=== PATIENT | male | born 1945 | race Caucasian/White ===

== ENCOUNTER 2024-06-05 07:59 | Outpatient (REF) | payer MEDICARE, SELFPAY ==
--- NOTE | ~2024-06-05 | CT_ITS ---
EXAMINATION: CT angio head neck CLINICAL INFORMATION: CEREBRAL MICROVASCULAR DISEASE COMPARISON: None TECHNIQUE: A noncontrast axial CT scan of the head was obtained. Test bolus sequences followed by intravenous administration of 70 mL of Omnipaque 350. Helical imaging was performed in the axial plane from the mediastinum to the skull vertex. Delayed postcontrast imaging of the head was also performed. The data was processed at the sterile processing technologist's workstation for generation of MIP sequences. Three-dimensional volume rendered reformatted images were also generated at an offline 3-D workstation. Arterial stenoses are measured in accordance with NASCET criteria or similar method if applicable. This CT examination was performed using dose optimization techniques as appropriate, variously including the following: * Automated exposure control * Adjustment of mA and/or kV according to patient size (this includes techniques or standardized protocols for targeted exams where dose is matched to indication/reason for exam; i.e. extremities or head) Use of iterative reconstruction technique DLP: 2533 mGy-cm. FINDINGS: CT head: There is a nonenhancing hypodensity in the inferior right cerebellum. Parekh to white matter differentiation is otherwise maintained. There is no evidence of acute intracranial hemorrhage. No abnormal mass effect or midline shift is seen. No extra-axial fluid collections are identified. There is no abnormal enhancement. No hydrocephalus. Proportional prominence of the ventricles and sulcal spaces is consistent with mild volume loss. Patchy periventricular and deep white matter hypoattenuation is consistent with moderate small vessel ischemic changes. The cerebellar tonsils are well positioned. No acute osseous or soft tissue abnormality. The mastoid air cells and visualized portions of the paranasal sinuses are well aerated. CTA neck: The imaged aortic arch is normal. Atheromatous plaque at the origin the right common carotid artery results in mild stenosis. Otherwise, the origins of the great vessels are widely patent. The common carotid arteries are patent. Bulky calcifications of the bilateral carotid bifurcations result in nonsignificant stenosis. There is a short dissection flap versus pseudoaneurysm projecting posteriorly from the origin the right internal carotid artery measuring 0.5 x 0.3 cm (series #10 axial image 364). The cervical internal carotid arteries are patent. The vertebral arteries opacify normally and are of normal caliber. Nonvascular: There is a 1.4 x 0.9 cm well-circumscribed right thyroid hypodense nodule. The soft tissues of the neck are otherwise unremarkable. Emphysema in the right greater than left visualized lung apices. Moderate C4-C6 cervical spondylosis. CTA head: Cavernous ICAs: Scattered atherosclerotic calcifications without significant stenosis on either side. A1 segments, anterior communicating artery, and A2 segments: Patent without significant stenosis. M1 segments and major MCA branches: Bilateral M1 segments are patent without significant stenosis. P1, P2 and proximal P3 segments of the user experience designer: Patent without significant stenosis. -type left NON LINEAR EDITOR. Intracranial vertebral arteries, cerebellar arteries and basilar artery: Patent without significant stenosis. Specifically, the visualized right PICA is widely patent. CT/CT angio head neck IMPRESSION: HEAD CT: 1. There is a nonenhancing hypodensity in the inferior right cerebellum, concerning for infarct of indeterminate age. If clinically warranted, consider brain MRI for further assessment. 2. No acute intracranial hemorrhage. CTA HEAD/NECK: 1. No high-grade stenosis or proximal occlusion of the vasculature of the head and neck. Specifically, the right PICA is widely patent. 2. There is a short dissection flap versus pseudoaneurysm projecting posteriorly from the origin of the right internal carotid artery. 3. There is a 1.4 cm right thyroid hypodense nodule. If clinically warranted, consider dedicated thyroid ultrasound for assessment. Electronically signed by: Isabel Gu DO 06/05/2024 01:36 PM EDT
[2024-06-05] MEDS: iohexoL 350 MG/ML 100 ML INFUS..BTL IV (09:26)
[2024-06-05 16:45] LABS: GFR POC > 60
== END 2024-06-05 08:00 | disposition home or self-care (01) ==
LOC: HO.CT 07:59
PROVIDERS: PCP Internal Medicine Endocrinology, Diabetes & Metabolism; Visit Provider Psychiatry & Neurology Neurology
DX: I63.50 Cerebral infarction due to unspecified occlusion or stenosis of unspecified cerebral artery (principal)
CPT/HCPCS: 70496; 70498; 82565; Q9967

== ENCOUNTER 2024-07-26 09:33 | Outpatient (REF) | payer MEDICARE, SELFPAY ==
--- NOTE | ~2024-07-26 | MR_ITS ---
EXAMINATION: MR BRAIN WITHOUT CONTRAST CLINICAL INFORMATION: Multiple cerebral infarctions. COMPARISON: CTA head and neck from 06/05/2024. TECHNIQUE: MRI of the brain was obtained using routine sequences without contrast. FINDINGS: No focal restricted diffusion is demonstrated to suggest acute or subacute cerebral ischemia. No evidence of acute hemorrhagic products on heme-sensitive imaging. Chronic region of encephalomalacia in the right cerebellar hemisphere with hemosiderin staining. Scattered and partially confluent periventricular, deep white matter, and brainstem T2 FLAIR hyperintensities consistent with moderate underlying microangiopathy. Proportional prominence of the ventricles and sulcal spaces without evidence of obstructive hydrocephalus. No abnormal mass effect. No midline shift. There appears to be a 1.6 cm lesion along the right aspect of the pituitary gland with smooth remodeling of the sella turcica. Normal positioning of the cerebellar tonsils. Normal arterial and venous vascular flow voids are present. Normal, homogeneous marrow signal. Mild mucosal thickening of the paranasal sinuses. Trace left-sided mastoid effusion. No signal abnormalities within the right mastoid. MR/MR head/brain wo con IMPRESSION: 1. No acute intracranial abnormalities. 2. Chronic region of encephalomalacia in the right cerebellar hemisphere. Moderate underlying microangiopathy and generalized cerebral volume loss. 3. There appears to be a 1.6 cm lesion along the right aspect of the pituitary gland with smooth remodeling of the sella turcica. This may represent an underlying pituitary adenoma. If clinically indicated, this could be further evaluated with dedicated pituitary protocol MRI. Electronically signed by: Prasanth Suarez DO 08/12/2024 01:42 PM [facility] [place]
== END 2024-07-26 09:34 | disposition home or self-care (01) ==
LOC: HO.MRI 09:33
PROVIDERS: PCP Internal Medicine Endocrinology, Diabetes & Metabolism; Visit Provider Psychiatry & Neurology Neurology
DX: I63.50 Cerebral infarction due to unspecified occlusion or stenosis of unspecified cerebral artery (principal)
CPT/HCPCS: 70551

== ENCOUNTER 2025-03-10 08:47 | Outpatient (REF) | payer MEDICARE, SELFPAY | END 2025-03-10 08:48 | disposition home or self-care (01) | LOC: HO.LAB 08:47 | PROVIDERS: PCP Internal Medicine Endocrinology, Diabetes & Metabolism; Visit Provider Psychiatry & Neurology Neurology | DX: I10 Essential (primary) hypertension (principal); I25.10 Atherosclerotic heart disease of native coronary artery without angina pectoris; I63.9 Cerebral infarction, unspecified; E23.7 Disorder of pituitary gland, unspecified; R26.9 Unspecified abnormalities of gait and mobility; Z79.82 Long term (current) use of aspirin; Z79.02 Long term (current) use of antithrombotics/antiplatelets; Z79.818 Long term (current) use of other agents affecting estrogen receptors and estrogen levels; Z79.899 Other long term (current) drug therapy; Z95.1 Presence of aortocoronary bypass graft; Z95.4 Presence of other heart-valve replacement | CPT/HCPCS: 36415; 84146; 99212 ==

== ENCOUNTER 2025-03-10 08:47 | Outpatient (AMB) | payer MEDICARE, SELFPAY ==
--- OUTSIDE RECORDS SUMMARY | 2025-03-10 09:00 | XMS_ITS | Clinical Summary ---
Author Organization [facility] Address [address] [place], [place] [address] Phone Care Team Providers Care Industrial Economics Professor Name Role Phone Akanksha Block Primary Care Provider [phone] Allergies Active Allergy Reactions Criticality Noted Date Comments Iodinated Contrast Media 07/14/2024 Medications amLODIPine (NORVASC) 5 mg tablet Take 1 Tablet by mouth daily. Active aspirin 81 mg EC tablet Take 1 Tablet by mouth daily. Active clopidogreL (PLAVIX) 75 mg tablet Take 1 Tablet by mouth daily. Active finasteride (PROSCAR) 5 mg tablet Take 1 Tablet by mouth daily. Active lisinopril (PRINIVIL,ZESTRIL) 40 mg tablet Take 1 tablet (40 mg total) by mouth 1 (one) time each day. Active VITAMIN A ORAL Take 1 tablet by mouth 1 (one) time each day. Active atorvastatin (LIPITOR) 80 mg tabletIndications:a therosclerotic cardiovascular disease Take 1 tablet (80 mg total) by mouth 1 (one) time each day. 90 tablet 3 4 Active metoprolol succinate (TOPROL-XL) 50 mg 24 hr tabletIndications:C oronary artery disease involving morongo coronary artery of morongo heart without angina pectoris Take 1 tablet (50 mg total) by mouth 1 (one) time each day. Do not crush or chew. 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 Continue with DAPT (ASA and Plavix). Plavix may be discontinued in December 2024. Continue with Metoprolol, Amlodipine and Lisinopril. Orders: atorvastatin (LIPITOR) 80 mg tablet; Take 1 tablet (80 mg total) by mouth 1 (one) time each day. metoprolol succinate (TOPROL-XL) 50 mg 24 hr tablet; Take 1 tablet (50 mg total) by mouth 1 (one) time each day. Do not crush or chew. History of cardiac cath 06/20/2024 Overview (06/20/2024): Done on 12/11/[address]Christopher Roberto Akhtar indications: severe aortic stenosis Cerebrovascular accident (CVA) ([facility] V24, [facility] V28) 03/09/2024 Overview (07/14/2024): December 2023 -developed left-sided numbness with brain MRI showing acute/subacute scattered CVA suspected to be cardioembolic. 14 day ROCT monitor March 2024 showed normal sinus rhythm without evidence of any other significant arrhythmias Assessment & Plan (07/14/2024 2:56 PM EST): Suspected cardioemoblic CVA in December 2023 manifested as left sided numbness. No neurologic symptoms since that time. ROCT did not show any atrial arrhythmias. Continue with Aspirin, Atorvastatin, Metoprolol, Amlodipine and Lisinopril as well as Plavix for now. Aortic valve stenosis 01/18/2023 Bicuspid aortic valve 01/18/2023 Overview (07/14/2024): December 2023 -surgical 21mm bioprosthetic aortic valve replacement in [place] at time of bypass surgery Assessment & Plan (07/14/2024 2:56 PM EST): Well seated and normally functioning 21mm bioprosthetic aortic valve on June 2024 echocardiogram. Valve working well on exam. Compensated on exam. Repeat echocardiogram in 2-3 years. GERD (gastroesophageal reflux disease) Peripheral arterial occlusive disease (CMS/HCC V 24) 01/18/2023 Encounters Date Type Department Care Team Description 01/14/2025 Telephone [facility] Cardiology [facility] [address] [place] [address] Faraz Montgomery NP Medication from Last 3 Months Surgical History Surgery Date Site/Laterality Comments AORTIC VALVE REPLACEMENT CORONARY ARTERY BYPASS GRAFT CARDIAC CATHETERIZATION Done on 12/11/[address]Christopher Holland Akhtar indications:severe aortic stenosis Medical History Medical History Date Comments GERD (gastroesophageal reflux disease) Social History Tobacco Use Types Packs/Day Years Used Date Smoking Tobacco: Former Cigarettes Smokeless Tobacco: Never Tobacco Cessation:Counseling Given: Not Answered Alcohol Use Standard Drinks/Week Comments Yes 0 (1 standard drink = 0.6 oz pur e alcohol) OCC Sex and Gender Information Value Date Recorded Sex Assigned at Not on file Legal Sex Male 7:34 AM EST Gender Identity Not on file Sexual Orientation Not on file Obstetrics History Last Filed Vital Signs Vital Sign Reading Time Taken Comments Blood Pressure 144/52 07/14/2024 11:10 AM EST Pulse 59 07/14/2024 11:10 AM EST Temperature - - Respiratory Rate - - Oxygen Saturation 99% 07/14/2024 11:10 AM EST Inhaled Oxygen Concentration - - Weight 60.1 kg (132 lb 8 oz) 07/14/2024 11:10 AM EST Height 172.7 cm (5' 8 ) 07/14/2024 11:10 AM EST Body Mass Index 20.15 07/14/2024 11:10 AM EST Plan of Treatment Upcoming Encounters Date Type Department Care Team (Late st Contact Info) Description 07/20/2025 9:10 AM EST Office Visit [facility] [address] [place] [address] Faraz Montgomery NP [address] [place] [address] [place] [address] Health Maintenance Due Date Last Done Comments DTaP,Tdap,and Td Vaccines (1 - Tdap) 1964 Pneumococcal Vaccine: 50+ Years (1 of 1 - PCV) 1995 Zoster Vaccines (1 of 2) 1995 RSV Immunization Adult Patients (1 - 1-dose 75+ series) 2020 Cholesterol Screening (Lipid Panel) 08/05/2022 Depression Screening 08/05/2022 Falls Risk Assessment 08/05/2022 Hepatitis C Screening 08/05/2022 Medicare Annual Wellness Visit 08/05/2022 Social Influencers of Health Screening 08/05/2022 COVID-19 Vaccine (3 - 2023-2 5 season) 2024 02/22/2021, 02/01/2021 Hypertension/CHF/CAD Annual BMP Blood Test 07/14/2024 Influenza Vaccine (#1) 2025 HIB Vaccines Aged Out No longer eligi ble based on patient's age to complete this topic HPV Vaccines Aged Out No longer eligi ble based on patient's age to complete this topic Hepatitis A Vaccines Aged Out No long er eligible based on patient's age to complete this topic Hepatitis B Vaccines Aged Out No long er eligible based on patient's age to complete this topic IPV Vaccines Aged Out No longer eligi ble based on patient's age to complete this topic MMR Vaccines Aged Out No longer eligi ble based on patient's age to complete this topic Meningococcal ACWY Vaccine Aged Out N o longer eligible based on patient's age to complete this topic Meningococcal B Vaccine Aged Out No l onger eligible based on patient's age to complete this topic RSV Immunization Patients Under 20 months Aged Out No longer eligible b ased on patient's age to complete this topic Varicella Vaccines Aged Out No longer eligible based on patient's age to complete this topic Insurance MEDICARE Care Teams Industrial Economics Professor Relationship Specialty Start Date End Date Akanksha Block PA [address] [place] [address] [place] [address] PCP - General 03/09/24
--- OUTSIDE RECORDS SUMMARY | 2025-03-10 09:00 | XMS_ITS | Continuity of Care Document ---
Author Organization [facility] [address] [place] [address] Phone [phone] Care Team Providers Care Magazine Designer Name Role Phone [facility] Cardiology Care Team Information Assistant Professor Of Religion [phone] Akanksha Block Care Team Information Receive r [phone] Problems Active Problems Provider Date Gastroesophageal reflux disease Marcos Moreno M.D. Onset: 03/16/2022 Aortic valve stenosis Marcos Moreno M.D. Onse t: 03/16/2022 Bicuspid aortic valve Marcos Moreno M.D. Onse t: 03/16/2022 Atherosclerosis of arteries of the extremities Marcos Moreno M.D. Onset: 03/16/2022 Essential hypertension Marcos Moreno M.D. Ons et: 06/18/2022 Peripheral arterial occlusive disease Marcos mchugh M.D. Onset: 06/18/2022 Cerebral artery occlusion ZAIN Brownlee Ons et: 04/06/2024 Ischemic heart disease ZAIN Brownlee Onset: 03/04/2024 Social History Type Date Description Comments Sex Male Sex Unknown Lives With Alone ETOH Use Occasionally consumes alcoho l Allergies and adverse reactions Description No Known Drug Allergies Medications Active Medications SIG Qnty Indications Ordering Provider Date Metoprolol Yqxkqglm50ms Tablets Take One Tablet By Mouth Twice A Day 90tabs Cathy Elliott M.D. 11/02/2024 Clobetasol Propionate E0.05% Cream Apply to affected skin once a day as directed 30gm Cathy Elliott M.D. 10/15/2024 [id number] Tablets 1 tab by mouth every day as directed Marcos Moreno M.D. 02/19/2024 Amlodipine Xamrezac8oj Tablets 1 by mouth every day 90kylie Elliott M.D. 07/19/2023 Qtwyrcrmjb88wz Tablets Take One Tablet By Mouth Every Day 90kylie Elliott M.D. 05/14/2022 Aspirin Adult Low Kukv10pz Tablets DR 1 by mouth every day Marcos Moreno M.D. 03/16/2022 Hpsnmynuzrx8bt Tablets 1 tab by mouth every day Marcos Moreno M.D. Clopidogrel Krguucdth09le Tablets Take One Tablet By Mouth Every Day 90kylie Elliott M.D. Vital Signs Date Vital Result Comment 01/12/2025 9:24am BP Systolic 132 mmHg BP Diastolic 50 mmHg Heart Rate 63 /min Height 68 inches 5'8 Weight 135.12 lb BMI (Body Mass Index) 20.5 kg/m2 Results Test Acquired Date Facility Test Result H/L Range Note CBC With Differential/ Platelet 10/15/2024 [facility] WBC 8.3 x10E3/uL 3.4-10.8 RBC 4.01 x10E6/uL Low 4.14-5.80 Hemoglobin 13.0 g/dL 13.0-17.7 Hematocrit 39.7 % 37.5-51.0 MCV 99 fL High 79-97 MCH 32.4 pg 26.6-33.0 MCHC 32.7 g/dL 31.5-35.7 RDW 12.6 % 11.6-15.4 Platelets 235 x10E3/uL 150-450 Neutrophils 69 % Not Estab. Lymphs 21 % Not Estab. Monocytes 5 % Not Estab. Eos 4 % Not Estab. Basos 1 % Not Estab. Immature Cells TNP Neutrophils (Absolute) 5.7 x10E3/uL 1.4-7.0 Lymphs (Absolute) 1.7 x10E3/uL 0.7-3.1 Monocytes(Absol u te) 0.4 x10E3/uL 0.1-0.9 Eos (Absolute) 0.3 x10E3/uL 0.0-0.4 Baso (Absolute) 0.1 x10E3/uL 0.0-0.2 Immature Granulocytes 0 % Not Estab. Immature Grans (Abs) 0.0 x10E3/uL 0.0-0.1 NRBC TNP Hematology Comments: TNP Basic Metabolic Panel (8) 10/15/2024 [facility] Glucose 89 mg/dL 70-99 BUN 19 mg/dL 8-27 Creatinine 1.27 mg/dL 0.76-1.27 eGFR 57 mL/min/1.73 Low >59 BUN/Creatinine Ratio 15 10-24 Sodium 142 mmol/L 134-144 Potassium 4.5 mmol/L 3.5-5.2 Chloride 103 mmol/L 96-106 Carbon Dioxide, Total 21 mmol/L 20-29 Calcium 9.7 mg/dL 8.6-10.2 CBC With Differential/ Platelet 03/16/2024 [facility] WBC 7.2 x10E3/uL 3.4-10.8 RBC 4.03 x10E6/uL Low 4.14-5.80 Hemoglobin 12.4 g/dL Low 13.0-17.7 Hematocrit 38.8 % 37.5-51.0 MCV 96 fL 79-97 MCH 30.8 pg 26.6-33.0 MCHC 32.0 g/dL 31.5-35.7 RDW 13.0 % 11.6-15.4 Platelets 261 x10E3/uL 150-450 Neutrophils 63 % Not Estab. Lymphs 29 % Not Estab. Monocytes 5 % Not Estab. Eos 2 % Not Estab. Basos 1 % Not Estab. Immature Cells TNP Neutrophils (Absolute) 4.6 x10E3/uL 1.4-7.0 Lymphs (Absolute) 2.1 x10E3/uL 0.7-3.1 Monocytes(Absol u te) 0.3 x10E3/uL 0.1-0.9 Eos (Absolute) 0.1 x10E3/uL 0.0-0.4 Baso (Absolute) 0.0 x10E3/uL 0.0-0.2 Immature Granulocytes 0 % Not Estab. Immature Grans (Abs) 0.0 x10E3/uL 0.0-0.1 NRBC [place] Hematology Comments: TNP TSH Rfx on Abnormal to Free T4 03/16/2024 [facility] TSH Rfx on Abnormal to Free T4 1.050 uIU/mL 0.450-4.500 Lipid Panel 02/13/2024 [facility] Cholesterol, Total 147 mg/dL 100-199 Triglycerides 83 mg/dL 0-149 HDL Cholesterol 66 mg/dL >39 VLDL Cholestero l Danyel 16 mg/dL 5-40 LDL Chol Calc ([facility]) 65 mg/dL 0-99 LDL Calc Comment: TNP Non-HDL Cholesterol 81 mg/dL 0-129 Complete Abc With Diff 02/13/2024 [facility] WBC 5.7 x10E3/uL 3.4-10.8 RBC 3.67 x10E6/uL Low 4.14-5.80 Hemoglobin 11.3 g/dL Low 13.0-17.7 Hematocrit 36.5 % Low 37.5-51.0 MCV 100 fL High 79-97 MCH 30.8 pg 26.6-33.0 MCHC 31.0 g/dL Low 31.5-35.7 RDW 14.3 % 11.6-15.4 Platelets 239 x10E3/uL 150-450 Neutrophils 57 % Not Estab. Lymphs 34 % Not Estab. Monocytes 7 % Not Estab. Eos 1 % Not Estab. Basos 1 % Not Estab. Immature Cells TNP Neutrophils (Absolute) 3.3 x10E3/uL 1.4-7.0 Lymphs (Absolute) 1.9 x10E3/uL 0.7-3.1 Monocytes(Absol u te) 0.4 x10E3/uL 0.1-0.9 Eos (Absolute) 0.1 x10E3/uL 0.0-0.4 Baso (Absolute) 0.0 x10E3/uL 0.0-0.2 Immature Granulocytes 0 % Not Estab. Immature Grans (Abs) 0.0 x10E3/uL 0.0-0.1 NRBC TNP Hematology Comments: TNP Urinalysis Complete 02/13/2024 [facility] Specific [place] 1.015 1.005-1.030 pH 6.0 5.0-7.5 Urine-Color Yellow Yellow Appearance Clear Clear WBC Esterase Negative Negative Protein 1+ Abnormal Negative/Tr dia Glucose Negative Negative Ketones Negative Negative Occult Blood Negative Negative Bilirubin Negative Negative Urobilinogen,Se m i-Qn 0.2 mg/dL 0.2-1.0 Nitrite, Urine Negative Negative Microscopic Examination See below: 1 Microscopic Examination TNP WBC None seen /hpf 0 - 5 RBC None seen /hpf 0 - 2 Epithelial Cell s (non renal) None seen /hpf 0 - 10 Epithelial Cell s (renal) TNP Casts None seen /lpf None seen Cast Type TNP Crystals TNP Crystal Type TNP Mucus Threads TNP Bacteria None seen None seen/Few Yeast TNP Trichomonas TNP Comment TNP Comp. Metabloic Panel (14) 02/13/2024 [facility] Glucose 75 mg/dL 70-99 BUN 20 mg/dL 8-27 Creatinine 1.15 mg/dL 0.76-1.27 eGFR 65 mL/min/1.73 >59 BUN/Creatinine Ratio 17 10-24 Sodium 142 mmol/L 134-144 Potassium 4.9 mmol/L 3.5-5.2 Chloride 107 mmol/L High 96-106 Anion Gap 12.0 mmol/L 10.0-18.0 Carbon Dioxide, Total 23 mmol/L 20-29 Calcium 9.3 mg/dL 8.6-10.2 Protein, Total 6.7 g/dL 6.0-8.5 Albumin 4.1 g/dL 3.8-4.8 Globulin, Total 2.6 g/dL 1.5-4.5 A/G Ratio 1.6 Bilirubin, Total 0.3 mg/dL 0.0-1 .2 Alkaline Phosphatase 69 IU/L 44-121 Ast (Sgot) 27 IU/L 0-40 Alt (SGPT) 28 IU/L 0-44 1 Microscopic was shira cated and was performed. Procedures Date Code Description Status 01/12/2025 G0444 Annual Depression Screening, 15 Minutes Completed 01/12/2025 1101F Doc No Falls In Past Year Or Only 1 Without Injury In Past Year Completed Medical Devices Description No Information Available Encounters Type Date Location Provider Dx Diagnosis Office Visit 01/12/2025 9:15a Main Office ZAIN Brownlee D64.9 Anemia, unspe cified I10 Essential (primary) hypertension I35.0 Nonrheumatic aortic (valve) stenosis Z95.2 Presence of prosthet ic heart valve I25.10 Athscl heart disease of [place] coronary artery w/o ang pctrs Z95.1 Presence of aortocor onary bypass graft Z00.00 Encntr for general a dult medical exam w/o abnormal findings Z13.31 Encounter for screen ing for depression N40.0 Benign prostatic hyp erplasia without lower urinry tract symp Assessments Date Code Description Provider 01/12/2025 D64.9 Anemia, unspecified ZAIN Echevarria 01/12/2025 I10 Essential (primary) hyperten mya ZAIN Brownlee 01/12/2025 I35.0 Nonrheumatic aortic (valve) stenosis ZAIN Brownlee 01/12/2025 Z95.2 Presence of prosthetic heart valve ZAIN Brownlee 01/12/2025 I25.10 Coronary (artery) disease ZAIN Cazares 01/12/2025 Z95.1 Presence of aortocoronary by pass graft ZAIN Brownlee 01/12/2025 Z00.00 [facility] ZAIN Brownlee 01/12/2025 Z13.31 Encounter for screening for depression ZAIN Brownlee 01/12/2025 N40.0 Benign prostatic hyperplasia without lower urinary tract symptoms ZAIN Brownlee Plan of Treatment Future Appointment(s):* 05/17/2025 9:00 am - Alexandra Hollins CNP at Main Office 01/12/2025 - ZAIN Brownlee* D64.9 Anemia, unspecified * I10 Essential (primary) hypertension * I35.0 Nonrheumatic aortic (valve) stenosis * Z95.2 Presence of prosthetic heart valve * I25.10 Coronary (artery) disease * Z95.1 Presence of aortocoronary bypass graft * Z00.00 Encounter for general adult medical examination without abnormal findings * Z13.31 Encounter for screening for depression * N40.0 Benign prostatic hyperplasia without lower urinary tract symptoms Functional Status Description No Information Available Mental Status Description No Information Available Referrals Refer to Reason for Referral Status Appt [facility] [place] HISTORY OF STROKE (NOT CONFIRMED YET) Closed 04/09/2024 [address] [place] [id number] [phone] [facility] Cardiology BICUSPID VALVE WITH AORTIC S TENOSIS [facility] [facility] [address] [place] [address] [phone] [facility] Cardiology AORTIC VALVE REPLACEMENT Katty sed 01/22/[address] [place] [address] [address] [place] [address] [phone]
--- NOTE | 2025-03-10 09:01 | MHC.OFFVIS ---
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 He was doing ok except that his balance was not good. No new issues. [facility] Medical History (Updated 03/10/25 @ 09:10 by Mann Arteaga MD) CAD (coronary artery disease) Hypertension Multiple cerebral infarctions Cerebral microvascular disease Surgical History (Updated 03/09/25 @ 11:05 by Britni Dubose MA) Hx of CABG Review of Systems Const Details: Constitutional:?No fever, chills, fatigue, weight loss, or night sweats. HEENT:?No headache, vision changes, hearing loss, nasal congestion, sore throat. Neurological:?C/O balance issues Psychiatric:?No anxiety, depression, mood swings, sleep disturbance, or hallucinations. Endocrine:?No heat/cold intolerance, polydipsia, polyuria, or hair/skin changes. Hematologic/Lymphatic:?No easy bruising, bleeding, or lymphadenopathy. Integumentary (Skin):?No rash, lesions, itching, or color changes. ? Physical Exam Neuro Other: Mental Status: Alert and oriented to person, place, and time. Normal attention. Normal spontaneous speech, fluency, and comprehension. No obvious issues with mood and memory. Affect is appropriate. Cranial Nerves: CN II: Visual [place] full to confrontation, visual acuity intact. CN III, IV, : Pupils equal, round, reactive to light and accommodation. Extraocular movements are normal. CN V: Facial sensation is normal. CN VII: Facial movements symmetrical. CN VIII: Hearing intact to bedside conversation is normal. CN IX, X: Palate elevates symmetrically. CN XI: Shoulder shrug and head turn symmetrical. CN XII: Tongue midline without atrophy or fasciculations. Gait and Station: No obvious gait abnormality. No ataxia or instability. Sensory: Intact to light touch, pinprick, and vibration. Romberg is negative. Extrapyramidal: Full facial expressions and blinking. No rigidity. Movements are appropriate with no tremor or abnormality. Speech: Normal; no dysarthria or tremor. 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 Code(s): I63.9 - Cerebral infarction, unspecified Category: Medical (2) Pituitary lesion: Code(s): E23.7 - Disorder of pituitary gland, unspecified Category: Medical (3) Gait disorder: Code(s): R26.9 - Unspecified abnormalities of gait and mobility Category: Medical Plan Impression: 1. Multiple cerebral infarctions 2. Small pituitary lesion 3. Gait disorder likely due to multiple cerebral infarctions. There was no specific treatment other than avoidance of further strokes, common sense measures to avoid falling, and regular walking and exercise. Recommendations: 1. Continue aspirin 81 mg daily +clopidogrel 75 mg combination with blood pressure control, and statin. 2. Prolactin level because of small pituitary lesion to rule out hormone producing lesion. 3. Regular walking and balance exercise Orders: Orders Prolactin Today E23.7 - Disorder of pituitary gland, unspecified Coding Level of Care Code Tele Est Pt Level 4 (63672) Diagnoses Multiple cerebral infarctions I63.9 Pituitary lesion E23.7 Gait disorder R26.9
== END 2025-03-10 09:14 | disposition home or self-care (01) ==
LOC: HO.HSM 08:48
PROVIDERS: PCP Internal Medicine Endocrinology, Diabetes & Metabolism; Visit Provider Psychiatry & Neurology Neurology
DX: I63.9 Cerebral infarction, unspecified (principal); E23.7 Disorder of pituitary gland, unspecified; R26.9 Unspecified abnormalities of gait and mobility
CPT/HCPCS: 99214